=== PATIENT | male | born 1980 | race Caucasian/White ===

== ENCOUNTER 2021-09-24 20:46 | Inpatient (IN) | payer OTHER ==
[~2021-09-24] VITALS: Ht 188 cm; Wt 81.6 kg
[2021-09-24] MEDS ORDERED: ONDANSETRON 4 MG/2 ML VIAL IV ONE (22:45)
[2021-09-24] MEDS ORDERED: HYDROMORPHONE 1 MG/1 ML DISP.SYRIN IV ONE (22:45)
[2021-09-24] MEDS ORDERED: IV NORMAL SALINE 1000 ML BAG IV ONE (22:45)
[2021-09-24] MEDS ORDERED: HYDROMORPHONE 1 MG/1 ML DISP.SYRIN ONE (22:58)
[2021-09-24] MEDS ORDERED: ONDANSETRON 4 MG/2 ML VIAL ONE (22:58)
[2021-09-24 22:59] LABS: MEAN CORPUSCULAR VOLUME 81.2 fL (73.0-96.2); PLATELET COUNT (AUTO) 261 K/uL (152-348)
[2021-09-24 23:10] LABS: CREATININE 0.9 mg/dL (0.6-1.3); POTASSIUM 3.9 mmol/L (3.5-5.1)
[2021-09-24 23:15] LABS: BILIRUBIN,DIRECT 0.2 mg/dL (0.0-0.2); BILIRUBIN,TOTAL 0.9 mg/dL (0.2-1.0); TOTAL PROTEIN, SERUM 8.1 g/dL (6.4-8.2)
[2021-09-25 00:21] LABS: *BILIRUBIN,URIN NEGATIVE (NEGATIVE); *BLOOD, URINE NEGATIVE (NEGATIVE); *CLARITY,URINE CLEAR (CLEAR); *KETONES,URINE NEGATIVE (NEGATIVE); *UROBILINOGEN,URINE 0.2 E.U./dl (NORMAL); LEUKOCYTE ESTERASE ,URINE NEGATIVE (NEGATIVE); NITRITE, URINE NEGATIVE (NEGATIVE); PH,URINE 7.5 (5.0-8.0); UGLUCOSE NEGATIVE (NEGATIVE)
[2021-09-25] MEDS ORDERED: HYDROMORPHONE 1 MG/1 ML DISP.SYRIN IV ONE (00:30)
[2021-09-25] MEDS ORDERED: ONDANSETRON 4 MG/2 ML VIAL IV ONE (00:30)
[2021-09-25 00:31] LABS: *COLOR,URINE STRAW (YELLOW)
[2021-09-25] MEDS ORDERED: ONDANSETRON 4 MG/2 ML VIAL ONE (00:37)
[2021-09-25] MEDS ORDERED: HYDROMORPHONE 1 MG/1 ML DISP.SYRIN ONE (00:37)
[2021-09-25] MEDS ORDERED: METOCLOPRAMIDE HCL 10 MG/2 ML VIAL IV ONE ×2 (02:30→03:00)
[2021-09-25] MEDS ORDERED: METOCLOPRAMIDE HCL 10 MG/2 ML VIAL ONE ×2 (02:47→02:55)
[2021-09-25] MEDS ORDERED: KETOROLAC TROMETHAMINE 30 MG INJ ONE (02:55)
[2021-09-25] MEDS ORDERED: KETOROLAC TROMETHAMINE 30 MG INJ IVP ONE (03:00)
[2021-09-25] MEDS ORDERED: MAGNESIUM HYDROXIDE 30 ML LIQUID UDC PO PRN (04:30)
[2021-09-25] MEDS ORDERED: REMEDY ESSENTIAL ZINC PASTE 113 GM TP PRN (04:30)
[2021-09-25] MEDS ORDERED: ACETAMINOPHEN 325 MG TABLET PO PRN (04:30)
[2021-09-25] MEDS ORDERED: ONDANSETRON 4 MG/2 ML VIAL IV PRN (04:30)
[2021-09-25] MEDS ORDERED: MORPHINE SULFATE 2 MG/1 ML DISP.SYRIN IV PRN (04:30)
[2021-09-25] MEDS ORDERED: CLONIDINE HCL 0.1 MG TABLET PO ONE (05:30)
[2021-09-25] MEDS ORDERED: CLONIDINE HCL 0.1 MG TABLET ONE (05:30)
[2021-09-25 06:05] LABS: HEMATOCRIT 40.3 % (36.7-47.1); MEAN CORPUSCULAR HEMOGLOBIN 28.2 uug (23.8-33.4); MEAN CORPUSCULAR VOLUME 80.3 fL (73.0-96.2); PLATELET COUNT (AUTO) 245 K/uL (152-348)
[2021-09-25 06:22] LABS: CREATININE 0.9 mg/dL (0.6-1.3); MAGNESIUM 2.3 mg/dL (1.8-2.4); PHOSPHOROUS 4.3 mg/dL (2.5-4.9); POTASSIUM 3.9 mmol/L (3.5-5.1)
[2021-09-25 09:46] VITALS: BP 140/96
[2021-09-25] MEDS ORDERED: SWABABLE VALVE TRANSFER SET EA MC ONE (11:22)
[2021-09-25] MEDS ORDERED: IOHEXOL 300MG/ML 100 ML INFUS..BTL ONE (11:22)
[2021-09-25] MEDS ORDERED: IV NORMAL SALINE 250 ML IV ONE (11:22)
[2021-09-25 16:00] VITALS: BP 146/101
[2021-09-25] MEDS: CLONIDINE HCL 0.1 MG TABLET PO PRN (20:11)
[2021-09-25 20:33] VITALS: BP 151/102
[2021-09-25] MEDS ORDERED: IV 1/2NS 1000 ML 1,000 ML IV ONE (22:15)
[2021-09-25] MEDS: AMLODIPINE 5 MG TABLET PO SCH (22:44)
[2021-09-26] MEDS: CLONIDINE HCL 0.1 MG TABLET PO PRN (04:30)
[2021-09-26 04:44] VITALS: BP 159/110
[2021-09-26] MEDS: AMLODIPINE 5 MG TABLET PO SCH (09:26)
[2021-09-26 09:41] VITALS: BP 143/93
[2021-09-26] MEDS ORDERED: MAGNESIUM CITRATE 296 ML BOTTLE PO ONE (11:15)
[2021-09-26] MEDS ORDERED: DOCUSATE SODIUM 100 MG CAPSULE PO SCH (11:15)
[2021-09-26] MEDS ORDERED: METOPROLOL TARTRATE 25 MG TABLET PO SCH (12:00)
[2021-09-26 13:59] VITALS: BP 136/94
[2021-09-26] MEDS ORDERED: CLON0.1T PO (16:55)
[2021-09-26] MEDS ORDERED: DOCU-141 PO (16:55)
[2021-09-26] MEDS ORDERED: METO25TA6 PO (16:55)
[2021-09-26 18:11] VITALS: BP 143/94
[2021-09-26] MEDS ORDERED: AMLODIPINE 5 MG TABLET PO SCH (20:00)
== END 2021-09-26 17:50 | disposition home or self-care (01) | DRG 247 ==
LOC: ER 21:56 → MEDSURG3 09-25 08:11
PROVIDERS: ADMIT Internal Medicine; ATTEND Internal Medicine
DX: K56.41 Fecal impaction (principal); F11.10 Opioid abuse, uncomplicated; G89.4 Chronic pain syndrome; N20.0 Calculus of kidney; I10 Essential (primary) hypertension; Z87.442 Personal history of urinary calculi; N44.8 Other noninflammatory disorders of the testis; V89.2XXS Person injured in unspecified motor-vehicle accident, traffic, sequela; R93.811 Abnormal radiologic findings on diagnostic imaging of right testicle; Z20.822 Contact with and (suspected) exposure to COVID-19
CPT/HCPCS: 36415; 76770; 76870; 83690; 83735; 84100; 85025; A4663; G0378; J1170; J1885; J2270; J2405; J2765; J7040; Q9967